=== PATIENT | female | born 1945 | race Caucasian/White ===

== ENCOUNTER → 2022-06-13 12:13 | Outpatient (CLI) | payer OTHER, SELFPAY ==
--- NOTE | ~2022-06-13 | MM_ITS ---
EXAMINATION: MM screening abena BI w joe HISTORY: Screening TECHNIQUE: Craniocaudal and mediolateral oblique 3-D tomosynthesis images were obtained and synthetic 2-D images were generated. CAD analysis was submitted and interpreted. COMPARISON: Comparison to multiple prior studies sequentially, with oldest reviewed study dated 12/2012. BREAST PARENCHYMAL COMPOSITION: Breast composed of scattered areas of fibroglandular density FINDINGS: Right breast mass located in the upper central breast is unchanged from prior examinations , previously biopsied proven benign. There is no evidence of suspicious mass, calcification, or archi tectural distortion to suggest malignancy in either breast. There has been no suspicious interval galdino nge. IMPRESSION: 1. No mammographic evidence of malignancy. 2. Recommend routine screening mammography in one year. BI-RADS Category 1: Negative Reviewed, dictated and finalized at location B. [facility]
== END ==
DX: Z12.31 Encounter for screening mammogram for malignant neoplasm of breast (principal)
CPT/HCPCS: 77063; 77067

== ENCOUNTER → 2023-02-12 12:57 | Outpatient (CLI) | payer OTHER, SELFPAY ==
--- NOTE | ~2023-02-12 | DEXA_ITS ---
Bone Density Report Name: ÁLVARO SALINAS Age: 77 Sex: Female Ethnicity: White Date of : 1945 Indication: postmenopausal; screening for osteoporosis; prior fracture; Referring Provider: LEIGH CHRISTENSEN Study: Bone densitometry was performed. Exam Date: February 12, 2023 Accession number: [id number] Bone Density: Region BMD T-score Z-score Classification AP Spine (L1-L4) 0.939 -1.0 1.5 Normal Femoral Neck (Left) 0.745 -0.9 1.2 Normal Total Hip (Left) 0.915 -0.2 1.6 Normal Femoral Neck (Right) 0.812 -0.3 1.8 Normal Total Hip (Right) 0.873 -0.6 1.3 Normal Total Hip Mean 0.894 -0.4 1.5 Normal World Health Organization criteria for BMD impression classify patients as: Normal (T-score at or above -1.0), Osteopenia (T-score between -1.0 and -2.5), or Osteoporosis (T-score at or below -2.5). 10-year Fracture Risk: FRAX not reported because: All T-scores for Spine Total, Hip Total, Femoral Neck at or above -1.0 Previous Exams: Region Exam Age BMD T-score BMD Change BMD Change Date g/cm2 vs Baseline vs Previous AP Spine(L1-L4) 02/12/2023 77 0.939 -1.0 -0.006 -0.031* 05/29/2016 70 0.970 -0.7 0.025* 0.025* 08/03/2005 59 0.945 -0.9 Total Hip(Left) 02/12/2023 77 0.915 -0.2 0.025 -0.010 05/29/2016 70 0.924 -0.1 0.035* 0.035* 08/03/2005 59 0.889 -0.4 Total Hip(Right) 02/12/2023 77 0.873 -0.6 -0.087* -0.082* 05/29/2016 70 0.955 0.1 -0.005 -0.005 08/03/2005 59 0.960 0.1 *Denotes significance at 95% confidence level, LSC for AP Spine = 0.022 g/cm2, LSC for Total Hip = 0.027 g/cm2 Clinical Information Provided by Patient: Has had a low trauma fracture Patient maximum height was 59.5 Menopause Age: 54 Drinks caffeinated beverages Onset of menses at age 13 Number of children 2 Impression: The patient has normal bone mass. The patient has risk factors, including: previous fracture. The BMD for the AP Spine(L1-L4) decreased, changing by -0.031 since the last DXA exam. The BMD for the Total Hip(Right) decreased, changing by -0.082 since the last DXA exam. Discussion: BONE DENSITY IS ABOVE THE MINIMUM DESIRABLE LEVEL AT ALL SKELETAL SITES TESTED. This patient?s bone mineral density is above the minimum desirable level (T-score -1.0 or better) at all sites measured. The patient should follow a healthful lifestyle (g
== END ==
PROVIDERS: PCP Internal Medicine
DX: Z78.0 Asymptomatic menopausal state (principal)
CPT/HCPCS: 77080

== ENCOUNTER 2023-10-08 07:00 | Outpatient (NON) | payer MEDICARE, SELFPAY | END 2023-10-08 07:01 | disposition home or self-care (01) | PROVIDERS: PCP Internal Medicine; Visit Provider Internal Medicine Gastroenterology | DX: Z12.11 Encounter for screening for malignant neoplasm of colon (principal) | CPT/HCPCS: 88305 ==

== ENCOUNTER 2023-10-08 07:13 | Day surgery (SDC) | payer MEDICARE, SELFPAY ==
[2023-09-23 13:28] VITALS: BMI 25.3
--- NOTE | 2023-10-08 08:00 | WPDANESEPPF ---
Anes - Initial Pre Proc Eval Procedure: Operation Date: 10/08/23 09:30 Proposed Procedures p Diagnostic Colonoscopy - Enoc Lopez MD Date/Time: 10/08/23 08:00 Surgeon: Enoc Lopez MD Pre Op Diagnosis: Other Fecal Abnormalities, Neoplasm Screening Patient Data Age: 78 Gender: F Height: 1.5 m Weight: 57 kg Allergies Allergy/AdvReac Type Severity Reaction Status Date / Time No Known Allergies Allergy Mild Verified 10/08/23 08:07 Home Medications Medication Instructions Recorded Confirmed Type lorazepam 0.5 mg tablet 0.5 mg PO TID PRN Anxiety 09/23/23 10/08/23 History multivit with minerals-iron 18 1 tablet PO DAILY 09/23/23 10/08/23 History mg-folic ac 400 mcg-vit K 25 mcg tablet (Adults Multivitamin) sertraline 25 mg tablet 25 mg PO DAILY 10/08/23 10/08/23 History Patient hx anesthesia problems: none Family hx anesthesia problems: none Results Review: All pre-operative results and documents have been reviewed as part of the pre-operative evaluation. [facility] Past Medical History Medical History (Updated 10/08/23 @ 08:00 by Sarkis Parks DO) Anxiety Diverticulosis Family History Family History (Updated 12/02/12 @ 11:12 by DOCTOR UNKNOWN) Other Hypertension Social History Social History Smoking packs per day: 0.25 Smoking cigarettes per day: 5.0 Years smoked: 20 Smoking pack-years: 5.00 Smoking status: Former smoker Tobacco type: cigarettes Smoking end date: 07/01/01 Alcohol intake: never Substance use: never Substance use type: does not use Living arrangements: alone Spiritual care concerns: No Anes - Eval Final PreProcedure Day of Procedure 10/08/23 08:00 Patient weight: overweight Heart: regular rate and rhythm Lungs: clear to auscultation Airway: Mallampati scale class II Neurological: alert and oriented Last oral intake: >/= 8 hours ASA classification: II Emergent: no Anesthetic plan: proceed Anesthesia type and monitoring: general GIVS and standard monitoring Results Review: All pre-operative results and documents have been reviewed as part of the pre-operative evaluation. Informed Consent: The patient's anesthetic plan and its attendant risks and benefits were discussed with the patient/family/POA. Questions were solicited and answers provided to the satisfaction of the patient/family/POA.
[2023-10-08 08:14] VITALS: BP 157/55; PULSE 77; RESP 18; TEMP 36.9; O2SAT 100; BMI 23.6
[2023-10-08] MEDS: LACTATED RINGERS 500 ML 150 ML IV CONT (08:31)
--- NOTE | 2023-10-08 09:05 | PM.HPGS ---
History of Present Illness History of Present Illness Consent: Risks, benefits, and alternatives have been discussed and questions answered. Patient agrees to proceed with procedure. Chief complaint: Other Fecal Abnormalities, Neoplasm Screening Narrative: Huyen Harris is a 78 year old female was referred for colon cancer screening. She recently performed a Cologuard test which was positive. Review of Systems Review of Systems: All systems reviewed & are unremarkable except as noted in HPI and below PMFSH Past Medical History Medical History Anxiety Diverticulosis Family History Family History Other Hypertension Social History Social History Smoking packs per day: 0.25 Smoking cigarettes per day: 5.0 Years smoked: 20 Smoking pack-years: 5.00 Smoking status: Former smoker Tobacco type: cigarettes Smoking end date: 07/01/01 Alcohol intake: never Substance use: never Substance use type: does not use Living arrangements: alone Spiritual care concerns: No Meds Home Medications and Allergies Home Medications Medication Instructions Recorded Confirmed Type lorazepam 0.5 mg tablet 0.5 mg PO TID PRN Anxiety 09/23/23 10/08/23 History multivit with minerals-iron 18 1 tablet PO DAILY 09/23/23 10/08/23 History mg-folic ac 400 mcg-vit K 25 mcg tablet (Adults Multivitamin) sertraline 25 mg tablet 25 mg PO DAILY 10/08/23 10/08/23 History Allergies Allergy/AdvReac Type Severity Reaction Status Date / Time No Known Allergies Allergy Mild Verified 10/08/23 08:07 Vital Signs Vital Signs - 24 hr 10/08/23 08:14 Temperature 36.9 C Pulse Rate 77 Respiratory Rate 18 Blood Pressure 157/55 H Pulse Oximetry 100 Oxygen Delivery Room Air Exam Resp: Auscultation: clear to auscultation bilaterally Cardio: Rate: regular rate Rhythm: regular rhythm GI: GI Palp: Yes Soft to palpation and No Tenderness to palpation present (GI) Assessment and Plan Assessment and plan (1) Colon cancer screening: Code(s): Z12.11 - Encounter for screening for malignant neoplasm of colon Status: Acute Assessment and Plan: Colonoscopy with possible biopsy or polypectomy or cautery or injection of substances.
[2023-10-08 10:21] VITALS: BP 100/54; PULSE 80; RESP 16; O2SAT 98
[2023-10-08 10:31] VITALS: BP 110/60; PULSE 86; RESP 18; O2SAT 98
[2023-10-08 10:41] VITALS: BP 113/64; PULSE 84; RESP 20; O2SAT 100
--- NOTE | 2023-10-08 12:37 | WPDANESPN ---
Anes - Prog Note Post-Op Date/Time: 10/08/23 12:37 Cardiovascular status: normal Respiratory status: normal Airway patency: baseline Mental status: baseline Post-Op hydration status: normal Vital Signs: Last Vital Signs Temp 36.9 C 10/08/23 08:14 Pulse 84 10/08/23 10:41 Resp 20 10/08/23 10:41 BP 113/64 10/08/23 10:41 Pulse Ox 100 10/08/23 10:41 O2 Del Method Room Air 10/08/23 10:41 Pain Score (VAS): 0 I/O: Intake & Output 10/07/23 10/08/23 10/08/23 23:59 07:59 15:59 Intake Total 350 Balance 350 Post-procedural complaints: none Patient Feedback: Patient satisfied with anesthetic care. Other Findings: Patient vital signs back to baseline. Patient denies nausea and vomiting. Patient's pain under control. Patient OK for discharge.
== END 2023-10-08 11:03 | disposition home or self-care (01) ==
PROVIDERS: PCP Internal Medicine; Visit Provider Internal Medicine Gastroenterology
PROC: 0DJD8ZZ Inspection of Lower Intestinal Tract, Via Natural or Artificial Opening Endoscopic (ICD-10-PCS; CPT 45378; principal; 2023-10-08 09:30)
DX: R19.5 Other fecal abnormalities (principal); D12.5 Benign neoplasm of sigmoid colon
CPT/HCPCS: 45385

== ENCOUNTER 2024-01-17 13:16 | Outpatient (CLI) | payer MEDICARE, SELFPAY ==
--- NOTE | ~2024-01-17 | MM_ITS ---
EXAMINATION: MM screening abena BI w joe HISTORY: Screening TECHNIQUE: Craniocaudal and mediolateral oblique 3-D tomosynthesis images were obtained and synthetic 2-D images were generated. CAD analysis was submitted and interpreted. COMPARISON: Comparison to multiple prior studies sequentially, with oldest reviewed study dated 04/01. BREAST PARENCHYMAL COMPOSITION: Not dense: There are scattered areas of fibroglandular density. FINDINGS: There is no evidence of suspicious mass, calcification, or architectural distortion to sugg est malignancy in either breast. There has been no suspicious interval change. IMPRESSION: 1. No mammographic evidence of malignancy. 2. Recommend routine screening mammography in one year. BI-RADS Category 1: Negative Reviewed, dictated and finalized at location B.
== END 2024-01-17 13:17 ==
PROVIDERS: PCP Internal Medicine; Visit Provider Internal Medicine
DX: Z12.31 Encounter for screening mammogram for malignant neoplasm of breast (principal)
CPT/HCPCS: 77063; 77067